=== PATIENT | female | born 1965 | race Caucasian/White ===

== ENCOUNTER → 2018-12-15 | Outpatient (CLI) | payer OTHER, MEDICAID ==
[2018-12-15 12:35] LABS: CHOLESTEROL 124 mg/dL (<200); HDL CHOLESTEROL 75 mg/dL (>40); LDL CHOLESTEROL 43 mg/dL (<100); POTASSIUM 3.2 mmol/L (3.5-5.1); TC:HDL 1.7 Ratio (Not establshd); TRIGLYCERIDE 31 mg/dL (<150); VLDL 6 mg/dL (<40)
[2018-12-15 12:36] LABS: SERUM ASSESSMENT Clear
== END ==
LOC: M.LAB 05:06
PROVIDERS: Student in an Organized Health Care Education/Training Program
DX: Z01.812 Encounter for preprocedural laboratory examination (principal)